=== PATIENT | female | born 1985 | race Caucasian/White ===

== ENCOUNTER 2019-02-23 20:37 | Emergency (ER) | payer MEDICAID, OTHER ==
[~2019-02-23] VITALS: Ht 170 cm; Wt 48.0 kg
[~2019-02-23 20:37] MED LIST: IBUP200C8 PO; NAPR550T PO
[2019-02-23] MEDS ORDERED: diphenhydrAMINE 50 MG/ML INJ (BENADRYL) IM ONE (22:00)
[2019-02-23] MEDS ORDERED: PROCHLORPERAZINE 10 MG/2ML INJ (COMPAZINE) IM ONE (22:00)
[2019-02-23] MEDS ORDERED: KETOROLAC 60 MG/2 ML VIAL IM ONE (22:00)
[2019-02-23] MEDS ORDERED: NS IV 1000 ML 1,000 ML IV SCH (22:15)
[2019-02-23] MEDS ORDERED: MAGNESIUM 1 GM/100 ML IVPB 100 ML IV ONE (22:15)
[2019-02-23] MEDS ORDERED: KETOROLAC 30 MG/ML VIAL IVP ONE (22:15)
[2019-02-23] MEDS ORDERED: SUMAtriptan 6 MG/0.5 ML (IMITREX) INJ SQ ONE (22:15)
[2019-02-23] MEDS ORDERED: PROCHLORPERAZINE 10 MG/2ML INJ (COMPAZINE) IV ONE (22:15)
--- NOTE | 2019-02-23 22:19 | ED Headache ---
General Chief Complaint: Head/Cervical Problems Stated Complaint: MIGRAINE Nursing Triage Note: Pt amb to room #9 with c/o migraine, nausea, vomiting, and photophobia. Pt reports discomfort behind bilat eyes. Reports onset of symptoms to be 02/22/19 @ approx 1300. Spouse @ side reports this is third ER visit <36hrs. A&OX4. Nursing Sepsis Screen: No Definite Risk Source: patient Exam Limitations: no limitations History of Present Illness Date Seen by Provider: Feb 23, 2019 Time Seen by Provider: 22:17 Initial Comments To ER accompanied by significant other with reports of a migraine behind both of her eyes. This her third ER visit in 36 hours. She lives in [facility], they saw an emergency room in [facility], another one in [place] and now here. He only thing that has helped so far is Dilaudid. Toradol doesn't work for her and the Imitrex she's been taking at home isn't helpful either. She was given dexamethasone last night. She's had nausea and vomiting as well. She states that she gets a migraine about twice a week. Severity/Quality: moderate Location: frontal Prior Headaches/Recent Trauma: no recent headache/trauma Associated Symptoms: nausea/vomiting Allergies and Home Medications Allergies Coded Allergies: venlafaxine HCl (Unverified Allergy, Mild, 09/07/10) Influenza Virus Vaccines (Verified Allergy, Unknown, 02/23/19) Migraines adhesive tape (Verified Allergy, Unknown, 02/23/19) cephalexin (Verified Allergy, Unknown, Itching, 02/23/19) rash diphenhydramine (Verified Allergy, Unknown, 02/23/19) "restless leg syndrome" duloxetine (Verified Allergy, Unknown, 02/23/19) varenicline (Verified Allergy, Unknown, 02/23/19) Suicidal ideation. venlafaxine (Verified Allergy, Unknown, Itching, 02/23/19) rash Home Medications Naproxen Sodium 550 Mg Tablet, 550 MG PO BID PRN Prescribed by: DEVANG MCDANIELS on 09/07/10 6727 Topiramate 25 Mg Tablet, 25 MG PO HS Prescribed by: JAKE ADAMS on 02/23/19 7205 Patient Home Medication List Home Medication List Reviewed: Yes Review of Systems Review of Systems Constitutional: see HPI Eyes: See HPI, Photophobia Ears, Nose, Mouth, Throat: no symptoms reported Respiratory: no symptoms reported Cardiovascular: no symptoms reported Genitourinary: no symptoms reported Musculoskeletal: no symptoms reported Skin: no symptoms reported Psychiatric/Neurological: No Symptoms Reported Past Qqjvdfr-Kgpsve-Ructek Hx Patient Social History Alcohol Use: Denies Use Recreational Drug Use: No Smoking Status: Current Everyday Smoker Type Used: Cigarettes 2nd Hand Smoke Exposure: Yes Recent Foreign Travel: No Contact w/Someone Who Travel: No Recent Infectious Disease Expo: No Recent Hopitalizations: No Seasonal Allergies Seasonal Allergies: No Past Medical History Respiratory: No Cardiac: No Neurological: Yes Headaches /Migraines Genitourinary: No Gastrointestinal: No Musculoskeletal: No Endocrine: No HEENT: No Cancer: No Psychosocial: Yes Sleep Difficulties, Anxiety, PTSD, Depression Integumentary: No Physical Exam Vital Signs Vital Signs - First Documented 02/23/19 21:47 Temp 36.7 Pulse 81 Resp 15 B/P (MAP) 117/85 (96) Pulse Ox 97 O2 Delivery Room Air Capillary Refill : Less Than 3 Seconds Height, Weight, BMI Height: '" Weight: lbs. oz. kg; 16.00 BMI Method: General Appearance: WD/WN, no apparent distress HEENT: PERRL/EOMI, normal ENT inspection Neck: non-tender, full range of motion Respiratory: no respiratory distress, no accessory muscle use Extremities: normal range of motion, non-tender Psychiatric: alert, oriented x 3 Crainal Nerves: normal hearing, normal speech, PERRL Skin: normal color, warm/dry Progress/Results/Core Measures Results/Orders My Orders Orders - JAKE ADAMS APRN Prochlorperazine Injection (Compazine In (02/23/19 22:00) Diphenhydramine Injection (Benadryl Inje (02/23/19 22:00) Ketorolac Injection (Toradol Injection) (02/23/19 22:00) Ed Iv/Invasive Line Start (02/23/19 22:11) Ns Iv 1000 Ml (Sodium Chloride 0.9%) (02/23/19 22:15) Ketorolac Injection (Toradol Injection) (02/23/19 22:15) Prochlorperazine Injection (Compazine In (02/23/19 22:15) Sumatriptan Injection (Imitrex Injection (02/23/19 22:15) Magnesium 1 Gm/100 Ml Ivpb (Magnesium Manning (02/23/19 22:15) Ketamine Syringe (Ed Only) (Ketamine Syr (02/23/19 23:00) Medications Given in ED Current Medications Medications Dose Ordered Sig/Janene Route Start Time Stop Time Status Last Admin Dose Admin Ketamine HCl 12.5 mg ONCE ONCE IV 02/23/19 23:00 02/23/19 23:01 DC 02/23/19 23:00 12.5 MG Ketorolac Tromethamine 30 mg ONCE ONCE IVP 02/23/19 22:15 02/23/19 22:16 DC 02/23/19 22:23 30 MG Magnesium Sulfate/ Dextrose 100 ml @ 100 mls/hr ONCE ONCE IV 02/23/19 22:15 02/23/19 23:14 02/23/19 22:22 100 MLS/HR Prochlorperazine Edisylate 5 mg ONCE ONCE IV 02/23/19 22:15 02/23/19 22:16 DC 02/23/19 22:23 5 MG Sumatriptan Succinate 6 mg ONCE ONCE SQ 02/23/19 22:15 02/23/19 22:16 DC 02/23/19 22:31 6 MG Vital Signs/I&O 02/23/19 21:47 Temp 36.7 Pulse 81 Resp 15 B/P (MAP) 117/85 (96) Pulse Ox 97 O2 Delivery Room Air Blood Pressure Mean: 96 Departure Communication (Admissions) 0463-patient states that her headache is actually worse despite the cocktail. Her states that he is active duty and [facility] [employer] [facility] [place] at in [place] the surgeon who was taking care of her told her she may be the 1 percent of people that the migraine cocktails don't work for her and he recommended they try ketamine in the future. I'll give ketamine 0.3 mg/kg IV. Impression Primary Impression: Migraine Qualified Codes: G43.919 - Migraine, unspecified, intractable, without status migrainosus Disposition: 01 HOME, SELF-CARE Condition: Improved Departure-Patient Inst. Decision time for Depature: 22:44 Referrals: RAFI JEAN (PCP) Primary Care Physician Patient Instructions: Headache, Adult (DC) Add. Discharge Instructions: . Return to ER for any fevers. Follow-up with your doctor next week. At the new migraine medication to her regimen. All discharge instructions reviewed with patient and/or family. Voiced understanding. Scripts Topiramate (Topamax) 25 Mg Tablet 25 MG PO HS, #10 TAB Prov: JAKE ADAMS APRN 02/23/19 JAKE ADAMS APRN Feb 23, 2019 22:19
[2019-02-23] MEDS ORDERED: TPR25T PO (22:45)
[2019-02-23] MEDS ORDERED: KETAMINE/NaCl 50 MG/5 ML SYRINGE (ED ONLY) IV ONE (23:00)
[2019-02-23] MEDS ORDERED: ALPRAZolam 0.5 MG (XANAX) TAB PO SCH (23:15)
[2019-02-23 23:24] VITALS: BP 126/94
== END 2019-02-23 23:24 | disposition home or self-care (01) ==
LOC: EDUNIT# 20:37 → ER 20:38
DX: G43.909 Migraine, unspecified, not intractable, without status migrainosus (principal); F41.9 Anxiety disorder, unspecified; F43.10 Post-traumatic stress disorder, unspecified; F32.9 Major depressive disorder, single episode, unspecified; F17.210 Nicotine dependence, cigarettes, uncomplicated; Z88.7 Allergy status to serum and vaccine; Z88.1 Allergy status to other antibiotic agents; Z88.8 Allergy status to other drugs, medicaments and biological substances
CPT/HCPCS: 96361; 96365; 96372; 96375

== ENCOUNTER 2019-11-22 22:59 | Emergency (ER) | payer MEDICAID, OTHER ==
[~2019-11-22] VITALS: Ht 170 cm; Wt 46.0 kg
[~2019-11-22 22:59] MED LIST changes: +TPR25T PO
[2019-11-22 23:30] VITALS: BP 118/84
[2019-11-22] MEDS ORDERED: PRD20T PO (23:58)
[2019-11-22] MEDS ORDERED: NAPR-1071 PO (23:58)
--- NOTE | 2019-11-22 23:59 | ED Upper Extremity ---
General Chief Complaint: Upper Extremity Stated Complaint: R SHOULDER PAIN Nursing Triage Note: C/O RIGHT SHOULDER PAIN X 1.5MONTHS. REPORTS HX OF BRUSITIS. C/O RIGHT HAND NUMBNESS/TINGLING Nursing Sepsis Screen: No Definite Risk History of Present Illness Date Seen by Provider: Nov 22, 2019 Time Seen by Provider: 23:40 Initial Comments 34-year-old female presents for right shoulder pain and sputum present for approximately 2 months. She's been diagnosed with bursitis. She took a Tylenol with Codeine this morning with minimal improvement in her symptoms she then took an ibuprofen 600 mg and continued to have pain this evening. She is to see an orthopedic surgeon at [facility] in [place], [place] where her is stationed on 11/27/19, she had an MRI there 2 weeks ago, does not know the results. No histories of previous surgeries to the right shoulder. She denies any paresthesias Right UE. Onset: other Pain/Injury Location: right shoulder Method of Injury: unknown Allergies and Home Medications Allergies Coded Allergies: venlafaxine HCl (Unverified Allergy, Mild, 09/07/10) Influenza Virus Vaccines (Verified Allergy, Unknown, 02/23/19) Migraines adhesive tape (Verified Allergy, Unknown, 02/23/19) cephalexin (Verified Allergy, Unknown, Itching, 02/23/19) rash diphenhydramine (Verified Allergy, Unknown, 02/23/19) "restless leg syndrome" duloxetine (Verified Allergy, Unknown, 02/23/19) varenicline (Verified Allergy, Unknown, 02/23/19) Suicidal ideation. venlafaxine (Verified Allergy, Unknown, Itching, 02/23/19) rash Home Medications Naproxen 500 Mg Tablet, 500 MG PO BID Prescribed by: COLTEN MARISCAL on 11/22/192357 Naproxen Sodium 550 Mg Tablet, 550 MG PO BID PRN Prescribed by: DEVANG MCDANIELS on 09/07/102354 Prednisone 20 Mg Tab, 60 MG PO DAILY Prescribed by: COLTEN MARISCAL on 11/22/192357 Topiramate 25 Mg Tablet, 25 MG PO HS Prescribed by: JAKE ADAMS on 02/23/19 4557 Patient Home Medication List Home Medication List Reviewed: Yes Review of Systems Constitutional: no symptoms reported, see HPI Musculoskeletal: see HPI, joint pain (right shoulder) All Other Systems Reviewed Negative Unless Noted: Yes Past Tpujnnm-Tolovg-Uvhjed Hx Past Med/Social Hx: Reviewed Nursing Past Med/Soc Hx Patient Social History Alcohol Use: Denies Use Recreational Drug Use: No Smoking Status: Current Everyday Smoker Type Used: Cigarettes 2nd Hand Smoke Exposure: Yes Recent Foreign Travel: No Contact w/Someone Who Travel: No Recent Infectious Disease Expo: No Recent Hopitalizations: No Immunizations Up To Date Tetanus Booster (TDap): Unknown Seasonal Allergies Seasonal Allergies: No Past Medical History Surgeries: Yes (BMT, DENTAL) Respiratory: No Cardiac: No Neurological: Yes Headaches /Migraines Genitourinary: No Gastrointestinal: No Musculoskeletal: Yes Endocrine: No HEENT: No Cancer: No Psychosocial: Yes Sleep Difficulties, Anxiety, PTSD, Depression Integumentary: No Blood Disorders: No Physical Exam Vital Signs Vital Signs - First Documented 11/22/19 23:30 Temp 36.8 Pulse 94 Resp 16 B/P (MAP) 118/84 (95) Pulse Ox 99 O2 Delivery Room Air Capillary Refill : Less Than 3 Seconds Height, Weight, BMI Height: '" Weight: lbs. oz. kg; 15.00 BMI Method: General Appearance: WD/WN, no apparent distress Cardiovascular: normal peripheral pulses, regular rate, rhythm Respiratory: chest non-tender, lungs clear, normal breath sounds Shoulder: normal inspection, normal ROM, pain (with impingement maneuver, power V/V biceps, triceps, and external rotators. Negative apprehension.), soft tissue tenderness Neurologic/Psychiatric: no motor/sensory deficits, alert, normal mood/affect, oriented x 3 Skin: normal color, warm/dry Progress/Results/Core Measures Results/Orders My Orders Orders - COLTEN MARISCAL Prednisone Tablet (Deltasone Tablet) (11/23/19 00:00) Vital Signs/I&O 11/22/19 23:30 Temp 36.8 Pulse 94 Resp 16 B/P (MAP) 118/84 (95) Pulse Ox 99 O2 Delivery Room Air Blood Pressure Mean: 95 Departure Impression Primary Impression: Bursitis of shoulder, right Disposition: 01 HOME, SELF-CARE Condition: Improved Departure-Patient Inst. Decision time for Depature: 23:55 Referrals: NO,LOCAL PHYSICIAN (PCP/Family) Primary Care Physician Patient Instructions: Shoulder Bursitis (DC) Add. Discharge Instructions: Alternate heat and ice to your right shoulder. Continue to take your home medication for pain. Take prednisone as prescribed. Take the naproxen as prescribed. Follow-up with the orthopedic surgeon your scheduled to see early next week. Return to the emergency department for new, urgent health care needs. All discharge instructions reviewed with patient and/or family. Voiced understanding. Scripts Naproxen (Naprosyn) 500 Mg Tablet 500 MG PO BID, #30 TAB 0 Refills Prov: COLTEN MARISCAL 11/22/19 Prednisone (Prednisone) 20 Mg Tab 60 MG PO DAILY, #6 TAB 0 Refills Prov: COLTEN MARISCAL 11/22/19 COLTEN MARISCAL Nov 22, 2019 23:58
[2019-11-23] MEDS ORDERED: predniSONE 20 MG TAB PO ONE
== END 2019-11-23 00:08 | disposition home or self-care (01) ==
LOC: EDUNIT# 22:59 → ER 23:01
DX: M75.51 Bursitis of right shoulder (principal); G43.909 Migraine, unspecified, not intractable, without status migrainosus; F17.210 Nicotine dependence, cigarettes, uncomplicated; Z88.8 Allergy status to other drugs, medicaments and biological substances; Z88.1 Allergy status to other antibiotic agents
CPT/HCPCS: 99283

== ENCOUNTER 2022-01-09 18:47 | Outpatient (CLI) | payer OTHER ==
[~2022-01-09] VITALS: Ht 170 cm; Wt 59.6 kg
[~2022-01-09 18:47] MED LIST changes: +NAPR-1071 PO; +PRD20T PO
[2022-01-09 19:21] VITALS: BP 115/72
[2022-01-09] MEDS ORDERED: CITRIC ACID/SOB CIT (BICITRA) 30 ML UDC PO ONE (19:45)
[2022-01-09 19:59] LABS: BILIRUBIN,URINE NEGATIVE (NEGATIVE); CLARITY,URINE CLEAR; COLOR,URINE YELLOW; GLUCOSE, URINE (UA) NEGATIVE (NEGATIVE); KETONES,URINE NEGATIVE (NEGATIVE); LEUKOCYTE ESTERASE ,URINE NEGATIVE (NEGATIVE); NITRITE,URINE NEGATIVE (NEGATIVE); PH,URINE 6.5 (5-9); PROTEIN,URINE NEGATIVE (NEGATIVE)
[2022-01-09 20:10] LABS: BACTERIA,URINE FEW /HPF; WBC,URINE RARE /HPF
[2022-01-09] MEDS ORDERED: ACETAMINOPHEN 500 MG TAB (TYLENOL) ONE (20:33)
[2022-01-09] MEDS ORDERED: ACETAMINOPHEN 500 MG TAB (TYLENOL) PO ONE (20:45)
[2022-01-09] MEDS ORDERED: PRD20T PO ×2 (22:39→22:51)
[2022-01-09] MEDS ORDERED: LIDO700A45 TP ×2 (22:39→22:51)
--- NOTE | 2022-01-12 08:10 | Physician Query-Final Dx ---
01/12/22 0810: Clinic Account Progress/Dx Physician Query: Please give diagnosis Please include # weeks gestation Date of Service Jan 09, 2022 at 18:47 SANCHEZ WASHBURN MD 01/12/22 1201: Clinic Account Progress/Dx DIAGNOSIS: Diagnosis False labor at 28 weeks gestation ,MarJan 12, 2022 08:10 SANCHEZ WASHBURN MD Jan 12, 2022 12:01
== END 2022-01-09 20:50 | disposition home or self-care (01) ==
LOC: WSo 18:47 → LDRP 18:47 → WSo 20:50
PROVIDERS: ATTEND Obstetrics & Gynecology
DX: O47.03 False labor before 37 completed weeks of gestation, third trimester (principal); Z3A.28 28 weeks gestation of pregnancy
CPT/HCPCS: 81000

== ENCOUNTER 2022-01-09 21:04 | Emergency (ER) | payer OTHER ==
[2022-01-09] MEDS ORDERED: ACETAMINOPHEN 500 MG TAB (TYLENOL) PO ONE (22:00)
[2022-01-09] MEDS ORDERED: methylPREDNISolone 125 MG (Solu-MEDROL) VIAL IM ONE (22:00)
--- NOTE | 2022-01-09 22:01 | ED Back Pain ---
General Chief Complaint: Back Problems Stated Complaint: BACK PAIN Nursing Triage Note: PT ARRIVAL TO ER VIA PRIVATE VEHICLE WITH COMPLAINTS OF CHRONIC BACK PAIN. PT INITIALLY SEEN UPSTAIRS DUE TO 28 WEEKS . PT WANTING TO BE SEEN IN ER DUE TO NOT GETTING PAIN MEDICINE UPSTAIRS. PATIENT TOLD TECH WHO TRANSPORTED HER TO OB THAT SHE NEEDS NORCO'S. PATIENT IN ER EXPLAINS WHY NO OTHER MEDICATIONS WORKS AND TELLS THIS NURSE PAIN IS A 10/10 AND NEEDS NORCO'S WELL. PATIENT AND SPOUSES STORIES CONTRADICT EACH OTHER AND HE STATES THAT THEY DROVE HERE TODAY FROM [place] 10 HOURS, YET PATIENT STATES THAT SHE HAS BEEN STANDING ALL DAY ON HER FEET. PT DID STATE THAT SHE HAS BEEN SEEN AT MULTIPLE ER'S FOR THIS AND NORCO'S ARE WHAT WORK. Source of Information: Patient, Other ( TRIES TO DO ALL TALKING FOR PT) History of Present Illness Date Seen by Provider: Jan 09, 2022 Time Seen by Provider: 21:43 Initial Comments PT ARRIVES VIA POV WITH MALE S.O. PT IS 27-28 WEEKS , HAS BEEN CLEARED BY OB DEPT AND LABOR IS RULED OUT. PT IS AB 0 PT IS HERE FROM [place], [place]. STATES THEY DROVE HERE FROM [place] YESTERDAY--10+ HOURS AND HAS BEEN STANDING ALL DAY TODAY. C/O BACK PAIN AND SPASMS--FROM MID BACK ALL THE WAY DOWN. STATES SPASMS ARE MORE IN RIGHT MID BACK NO RADICULAR PAIN NO PARESTHESIAS OR MOTOR DEFICITS NO SADDLE ANESTHESIA NO LOSS OF BOWEL OR BLADDER CONTROL NO ABDOMINAL PAIN OR CRAMPING, NO URINARY SYMPTOMS AND URINE WAS CLEAR IN OB DEPT. NO VAGINAL BLEEDING OR DISCHARGE. HAS HAD ONGOING BACK PAIN, BUT HAS BEEN WORSE SINCE . STATES SHE HAS BEEN TRAVELING BACK AND FORTH ALOT SINCE THEN--TO [place] AND BACK , TO [place] AND BACK, THEN HERE. PT SPECIFICALLY REQUESTING "NORCO" --STATES "IT'S THE ONLY THING THAT HELPS" STATES SHE WENT TO ER IN [facility] ON 12/28 AND STATES "THEY GAVE ME A LOW DOSE NORCO THERE AND IT TOOK MY PAIN FROM A 10/10 DOWN TO A 6" SHE STATES "FLEXERIL NEVER WORKS". BRINGS A BOTTLE OF METHOCARBAMOL 500 MG TID #21 FILLED 01/05/22. STATES IT DOES NOT HELP AT ALL. LAST DOSE AT 1800 TONIGHT. SHE HAS NOT TAKEN ANY TYLENOL OR ANYTHING ELSE FOR PAIN TODAY SHE HAS CHRONIC NAUSEA AND VOMITING--ONGOING FOR OVER A YEAR. HAS RX FOR ZOFRAN. HAS NOT TAKEN ANY TODAY. SHE STATES NO VOMITING TODAY. PT STATES SHE HAS DIET CONTROLLED GESTATIONAL DIABETES. SHE ALSO LISTS A MULTITUDE OF ALLERGIES, AND SHE IS ON MULTIPLE PSYCH MEDICATIONS, INCLUDING REXULTI, TRINTELLIX, ZYPREXA AND PROPRANOLOL. SHE ALSO HAS ZOFRAN, UNISOM, VITAMINS, VIT D Allergies and Home Medications Allergies Coded Allergies: venlafaxine HCl (Unverified Allergy, Mild, 09/07/10) Influenza Virus Vaccines (Verified Allergy, Unknown, 02/23/19) Migraines adhesive tape (Verified Allergy, Unknown, 02/23/19) cephalexin (Verified Allergy, Unknown, Itching, 02/23/19) rash diphenhydramine (Verified Allergy, Unknown, 02/23/19) "restless leg syndrome" duloxetine (Verified Allergy, Unknown, 02/23/19) varenicline (Verified Allergy, Unknown, 02/23/19) Suicidal ideation. venlafaxine (Verified Allergy, Unknown, Itching, 02/23/19) rash Patient Home Medication List Lidocaine (Lidocaine 5% Patch) 5 % Adh..patch, 1 EACH TP Q12H PRN for Neuropathic pain Prescribed by: MANN CANO on 01/09/222238 Prednisone (Prednisone) 20 Mg Tab, 40 MG PO DAILY Prescribed by: MANN CANO on 01/09/222238 Discontinued Medications Ibuprofen (Advil Migraine) 200 Mg Capsule, 1,000 MG PO, (Reported) Discontinued Reason: No Longer Taking Entered as Reported by: WALE GHOSH on 09/07/102258 Naproxen (Naprosyn) 500 Mg Tablet, 500 MG PO BID Discontinued Reason: No Longer Taking Prescribed by: COLTEN MARISCAL on 11/22/192357 Naproxen Sodium (Anaprox Ds) 550 Mg Tablet, 550 MG PO BID PRN Discontinued Reason: No Longer Taking Prescribed by: DEVANG MCDANIELS on 09/07/102354 Prednisone (Prednisone) 20 Mg Tab, 60 MG PO DAILY Discontinued Reason: No Longer Taking Prescribed by: COLTEN MARISCAL on 11/22/192357 Topiramate (Topamax) 25 Mg Tablet, 25 MG PO HS Discontinued Reason: No Longer Taking Prescribed by: JAKE ADAMS on 02/23/19 6522 Review of Systems Constitutional: no symptoms reported Respiratory: no symptoms reported Cardiovascular: no symptoms reported Gastrointestinal: no symptoms reported Genitourinary: no symptoms reported : Yes Musculoskeletal: see HPI, back pain Skin: no symptoms reported Psychiatric/Neurological: Anxiety Past Dyuykrq-Csgkhr-Qmwscd Hx Patient Social History Tobacco Use?: No Use of E-Cig and/or Vaping dev: No Alcohol Use?: No Pt feels they are or have been: No Immunizations Up To Date Tetanus Booster (TDap): Unknown Influenza Vaccine Up-to-Date: No; Not Current Seasonal Allergies Seasonal Allergies: No Past Medical History Surgeries: Yes (BMT, DENTAL) Ear Surgery Respiratory: No Cardiac: No Neurological: Yes Headaches /Migraines : Yes Genitourinary: No Gastrointestinal: Yes (CHRONIC NAUSEA/VOMITING) Musculoskeletal: Yes Chronic Back Pain Endocrine: Yes (GESTATIONAL DIABETES, DIET CONTROLLED) HEENT: No Cancer: No Psychosocial: Yes Sleep Difficulties, Anxiety, PTSD, Bipolar, Depression Integumentary: No Blood Disorders: No Physical Exam Vital Signs Vital Signs - First Documented 01/09/22 21:38 Temp 35.9 Pulse 88 Resp 16 B/P (MAP) 107/83 (91) Pulse Ox 99 O2 Delivery Room Air Capillary Refill : Less Than 3 Seconds Height, Weight, BMI Height: '" Weight: lbs. oz. kg; 15.00 BMI Method: General Appearance: WD/WN, Other (CONSTANT MOVEMENTS, CANNOT SIT OR STAND OR LAY STILL. PACING IN ROOM THEN SITTING DOWN, THEN LAYING FLAT ON HER BACK, THEN SITTING UP THEN STANDING UP AND PACING ALL OVER ROOM. ) Neck: Normal Inspection, Non Tender Cardiovascular: Regular Rate, Rhythm, No Murmur Respiratory: Normal Breath Sounds, No Accessory Muscle Use Gastrointestinal: Normal Bowel Sounds, Non Tender Back: Other (DIFFUSE MID AND LOWER BACK TENDERNESS. NO MUSCLE SPASMS NOTED. ) Extremity: Normal Capillary Refill, Normal Inspection, Normal Range of Motion, Non Tender, No Calf Tenderness, No Pedal Edema Neurologic/Psychiatric: Alert, Oriented x3, No Motor/Sensory Deficits, belt worker II- XII Norm as Tested, Other (DTR'S +2/4 BILATERALLY. ) Skin: Normal Color, Warm/Dry; No Rash Progress/Results/Core Measures Results/Orders Lab Results Laboratory Tests Test 01/09/22 19:20 Range/Units Urine Opiates Screen NEGATIVE NEGATIVE Urine Oxycodone Screen NEGATIVE NEGATIVE Urine Methadone Screen NEGATIVE NEGATIVE Urine Propoxyphene Screen NEGATIVE NEGATIVE Urine Barbiturates Screen NEGATIVE NEGATIVE Ur Tricyclic Antidepressants Screen NEGATIVE NEGATIVE Urine Phencyclidine Screen NEGATIVE NEGATIVE Urine Amphetamines Screen NEGATIVE NEGATIVE Urine Methamphetamines Screen NEGATIVE NEGATIVE Urine Benzodiazepines Screen POSITIVE H NEGATIVE Urine Cocaine Screen NEGATIVE NEGATIVE Urine Cannabinoids Screen POSITIVE H NEGATIVE My Orders Orders - MANN CANO DO Methylprednisolone Sod Succ (Solu-Medrol (01/09/22 22:00) Acetaminophen Tablet (Tylenol Tablet) (01/09/22 22:00) Drug Screen Stat (Urine) (01/09/22 22:02) Medications Given in ED Current Medications Medications Dose Ordered Sig/Janene Route Start Time Stop Time Status Last Admin Dose Admin Acetaminophen 1,000 mg ONCE ONCE PO 01/09/22 22:00 01/09/22 22:01 DC 01/09/22 22:08 1,000 MG Methylprednisolone Sodium Succinate 125 mg ONCE ONCE IM 01/09/22 22:00 01/09/22 22:01 DC 01/09/22 22:07 125 MG Vital Signs/I&O 01/09/22 01/09/22 21:38 22:40 Temp 35.9 Pulse 88 76 Resp 16 16 B/P (MAP) 107/83 (91) 111/80 Pulse Ox 99 99 O2 Delivery Room Air Room Air Blood Pressure Mean: 91 Progress Progress Note : Progress Note GIVEN SOLUMEDROL IM AND TYLENOL Departure Impression Primary Impression: Back pain affecting Additional Impressions: 27 weeks gestation of Marijuana use Disposition: 01 HOME, SELF-CARE Condition: Stable Departure-Patient Inst. Decision time for Depature: 22:34 Referrals: NO,LOCAL PHYSICIAN (PCP/Family) Primary Care Physician Patient Instructions: Low Back Pain (DC), Marijuana, - The Sixth Month, Upper Back Pain (DC) Add. Discharge Instructions: MOIST HEAT TO BACK TYLENOL 1 GRAM 4 TIMES A DAY FOR PAIN CONTINUE METHOCARBAMOL PRESCRIBED NO MARIJUANA FOLLOW UP WITH YOUR OB ON WEDNESDAY SCHEDULED All discharge instructions reviewed with patient and/or family. Voiced understanding. Scripts Prednisone (Prednisone) 20 Mg Tab 40 MG PO DAILY, #6 TAB 0 Refills Prov: MANN CANO DO 01/09/22 Lidocaine (Lidocaine 5% Patch) 5 % Adh..patch 1 EACH TP Q12H PRN for Neuropathic pain MDD 2, #10 PATCH 2 patches max for 12 hours, then 12 hours patch-free period. Prov: MANN CANO DO 01/09/22 MANN CANO DO Jan 09, 2022 22:01
[2022-01-09 22:20] LABS: BENZODIAZEPINES SCREEN URINE POSITIVE (NEGATIVE); CANNABINOID SCREEN, URINE POSITIVE (NEGATIVE)
[2022-01-09 22:21] LABS: AMPHETAMINE SCREEN, URINE NEGATIVE (NEGATIVE); BARBITURATE SCREEN URINE NEGATIVE (NEGATIVE); COCAINE SCREEN URINE NEGATIVE (NEGATIVE); METHADONE STAT NEGATIVE (NEGATIVE); OPIATE SCREEN URINE NEGATIVE (NEGATIVE); OXYCODONE STAT NEGATIVE (NEGATIVE); PROPOXYPHENE STAT NEGATIVE (NEGATIVE); TRICYCLIC ANTIDEPRESSANTS SCRE NEGATIVE (NEGATIVE)
[2022-01-09] MEDS ORDERED: LIDO700A45 TP ×2 (22:39→22:51)
[2022-01-09] MEDS ORDERED: PRD20T PO ×2 (22:39→22:51)
[2022-01-09 22:40] VITALS: BP 111/80
== END 2022-01-09 22:54 | disposition home or self-care (01) ==
LOC: EDUNIT# 21:04 → ER 21:06
DX: O26.892 Other specified pregnancy related conditions, second trimester (principal); O99.322 Drug use complicating pregnancy, second trimester; M54.50 Low back pain, unspecified; F12.90 Cannabis use, unspecified, uncomplicated; Z28.310 Unvaccinated for COVID-19; Z3A.27 27 weeks gestation of pregnancy
CPT/HCPCS: 80306; 99284